=== PATIENT | female | born 1945 | race Caucasian/White ===

== ENCOUNTER 2016-09-07 07:40 | Emergency (ER) | payer MEDICARE, OTHER ==
[~2016-09-07] VITALS: Ht 162.6 cm; Wt 70.5 kg
[2016-09-07 07:43] VITALS: TEMP 98
[2016-09-07] MEDS ORDERED: VITAMIN C500 MG PO (07:56)
[2016-09-07] MEDS ORDERED: ONE DAILY1 TA1 PO (07:56)
[2016-09-07] MEDS ORDERED: ASPIRIN 81M81 MG/TA2 PO (07:56)
[2016-09-07] MEDS ORDERED: LEXAPRO 10MG10 MG PO (07:56)
[2016-09-07] MEDS ORDERED: PRIL40 PO (07:57)
[2016-09-07] MEDS ORDERED: COZAAR 25MG25 MG/TAB PO (07:57)
[2016-09-07] MEDS ORDERED: NORCO 325 MG-51 TAB PO (08:15)
[2016-09-07] MEDS ORDERED: NAPROXEN 3375 MG/TAB PO (08:15)
[2016-09-07 09:17] VITALS: BP 148/90; PULSE 99
== END 2016-09-07 09:18 | disposition home or self-care (01) ==
LOC: COL.ER 07:40
DX: M25.511 Pain in right shoulder (principal); M75.21 Bicipital tendinitis, right shoulder; Z79.82 Long term (current) use of aspirin; Z90.710 Acquired absence of both cervix and uterus
CPT/HCPCS: J1885

== ENCOUNTER → 2016-11-18 | Outpatient (CLI) | payer MEDICARE, OTHER ==
[~2016-11-18] MED LIST: ASPIRIN 81M81 MG/TA2 PO; COZAAR 25MG25 MG/TAB PO; LEXAPRO 10MG10 MG PO; NAPROXEN 3375 MG/TAB PO; NORCO 325 MG-51 TAB PO; ONE DAILY1 TA1 PO; PRIL40 PO; VITAMIN C500 MG PO
== END ==
LOC: MC.RAD 09:10
DX: Z12.31 Encounter for screening mammogram for malignant neoplasm of breast (principal)

== ENCOUNTER → 2017-12-07 | Outpatient (CLI) | payer MEDICARE, OTHER | LOC: MC.RAD 10:20 | DX: Z12.31 Encounter for screening mammogram for malignant neoplasm of breast (principal) ==

== ENCOUNTER → 2019-03-15 | Outpatient (CLI) | payer MEDICARE, OTHER | LOC: MC.RAD 09:40 | DX: Z12.31 Encounter for screening mammogram for malignant neoplasm of breast (principal) ==

== ENCOUNTER 2020-03-23 19:17 | Observation (INO) | payer MEDICARE, OTHER ==
[~2020-03-23] VITALS: Ht 160 cm; Wt 70.1 kg
[2020-03-23 19:54] LABS: ALANINE AMINOTRANSFERASE 21 U/L (4-34); ALBUMIN 4.5 gm/dL (3.5-5.0); ALKALINE PHOSPHATASE 85 U/L (50-136); ANION GAP 10 mmol/L (7-16); AST,SGOT 30 U/L (15-37); BILIRUBIN,TOTAL 0.8 mg/dL (0.0-1.0); BLOOD UREA NITROGEN 21 mg/dL (7-17); CALCIUM 9.4 mg/dL (8.4-10.2); CARBON DIOXIDE 24 mmol/L (22-30); CHLORIDE 102 mmol/L (98-107); CREATININE, serum 0.96 (0.52-1.25); GLUCOSE 123 mg/dL (74-106); SODIUM 136 mmol/L (137-145); TOTAL PROTEIN 7.7 gm/dL (6.4-8.2)
[2020-03-23 20:06] LABS: MUCOUS Present /lpf; PH 6 (5-8); SQUAMOUS EPITHELIAL 0-2 /hpf; URINE APPEARANCE Clear; URINE BACTERIA Rare /hpf; URINE BILIRUBIN Negative (NEGATIVE); URINE BLOOD Negative (NEGATIVE); URINE COLOR Yellow; URINE GLUCOSE Negative (NEGATIVE); URINE KETONE Negative (NEGATIVE); URINE LEUKOCYTE ESTERASE Negative (NEGATIVE); URINE NITRATE Negative (NEGATIVE); URINE PROTEIN(semi-quant) Negative (NEGATIVE); URINE RBC 0-2 /hpf; URINE WBC 0-2 /hpf
[2020-03-23 20:10] LABS: TROPONIN-I < 0.012 ng/mL (0.000-0.035)
[2020-03-23 20:15] LABS: INR 1.2 (0.8-3.0)
[2020-03-23 20:31] LABS: BASO % 0.5 % (0.0-2.0); EOS # 0.1 (0.0-0.7); EOS % 2.2 % (0-4.0); GRAN # 4.1 (1.4-6.5); GRAN % 62.3 % (42.2-75.2); HEMOGLOBIN 15.7 g/dl (12.5-16.0); LYMPH # 1.4 (1.2-3.4); LYMPH % 21.7 % (20.0-51.0); MEAN CELL VOLUME 93 fl (80.0-100.0); MEAN CORPUSCULAR HEMOGLOBIN 32 pg (27.0-31.0); MEAN CORPUSCULAR HGB CONC 34 g/dl (33.0-37.0); MONO # 0.8 (0.1-0.6); MONO % 12.5 % (1.7-9.3); PLATELET COUNT 157 K/mm3 (130-400); RED BLOOD COUNT 4.95 M/mm3 (4.10-5.30); REDCELL DISTRIBUTION WIDTH-CV 14.2 % (11.5-14.5)
[2020-03-23 21:11] LABS: COLLECTION METHOD CLEAN CATCH
[2020-03-23 23:08] VITALS: BP 162/88; PULSE 83; TEMP 98.2
--- NOTE | 2020-03-23 23:08 | NUR ---
@2300, PATIENT ADMITTED TO ROOM 346 PER W/C ACCOMPANIED BY ED NURSE. PATIENT U AMBULATING IN ROOM, GAIT STEADY, SPEECH CLEAR, FOLLOWS COMMANDS AT THIS TIME. TELE IN PLACE. SALINE LOCK IN PLACE.
[2020-03-23] MEDS ORDERED: ADVIL200 MG PO (23:50)
[2020-03-23] MEDS ORDERED: COZAAR 50MG50 MG/TAB PO (23:50)
[2020-03-24] VITALS (8 sets, daily range): BP systolic 132–172; BP diastolic 57–94; PULSE 82–97; TEMP 98–98.8
[2020-03-24 00:02] LABS: MAGNESIUM 2.3 mg/dL (1.6-2.3); PHOSPHOROUS 3.8 mg/dL (2.5-4.5)
[2020-03-24 06:29] LABS: BASO % 0.3 % (0.0-2.0); EOS # 0.1 (0.0-0.7); EOS % 1.6 % (0-4.0); GRAN % 65.1 % (42.2-75.2); HEMATOCRIT 44.7 % (37.0-47.0); HEMOGLOBIN 15.1 g/dl (12.5-16.0); LYMPH # 1.3 (1.2-3.4); LYMPH % 20.8 % (20.0-51.0); MEAN CELL VOLUME 94 fl (80.0-100.0); MEAN CORPUSCULAR HEMOGLOBIN 32 pg (27.0-31.0); MEAN CORPUSCULAR HGB CONC 34 g/dl (33.0-37.0); MEAN PLATELET VOLUME 9.2 fl (7.4-10.4); MONO # 0.7 (0.1-0.6); MONO % 11.7 % (1.7-9.3); RED BLOOD COUNT 4.78 M/mm3 (4.10-5.30); REDCELL DISTRIBUTION WIDTH-CV 14.2 % (11.5-14.5)
[2020-03-24 06:46] LABS: CHOLESTEROL 185 mg/dL (120-200); CHOLESTEROL RISK RATIO 2.3; HDL CHOLESTEROL 80 mg/dL; LDL CHOLESTEROL 87 mg/dL; TRIGLYCERIDE 92 mg/dL
[2020-03-24 06:52] LABS: C-REACTIVE PROTEIN < 0.5 mg/dL (0.0-0.9)
[2020-03-24 06:55] LABS: PLATELET COUNT 136 K/mm3 (130-400)
--- NOTE | 2020-03-24 07:24 | NUR ---
CHANGE OF SHIFT REPORT GIVEN TO DAY SHIFT NURSEDANY.
--- NOTE | 2020-03-24 08:00 | NUR ---
Patient in bed resting. Alert and oriented x3. Assessment complete. Denies pain at this time. Denies further needs at this time.
--- NOTE | 2020-03-24 12:34 | NUR ---
First visit from the planning associate. No needs right now.
[2020-03-24] MEDS ORDERED: PLAVIX 75MG TAB75 MG PO (13:05)
[2020-03-24] MEDS ORDERED: COZAAR 50MG50 MG/TAB PO (13:06)
--- NOTE | 2020-03-24 13:33 | NUR ---
Discharge education provided to patient. Educated on when to call provider and scheduling follow up appointment. Educated on medicaiton changes and new medication. All questions answered. INT to LAC discontinued, catheter tip intact. Denies further needs at this time. Patient ambulated out with surgical staff.
--- NOTE | 2020-03-24 14:06 | NUR ---
DEVANTE (Antonia) met with patient to conduct intake evaluation. Patient lives in [place] with her Abdullahi (P# [phone]). Patint requires no assistance with ADLs and requires no DME. Patient's PCP is Dr. Craig, and he uses [facility] for medications. Patient does not require assistance in obtaining medications. Patient is currently being discharged home with . There are no needs at this time.
== END 2020-03-24 13:34 | disposition home or self-care (01) ==
LOC: COL.ER 19:17 → SURG 21:55
PROVIDERS: Emergency Medicine; Nurse Practitioner Family
DX: R47.01 Aphasia (principal); I10 Essential (primary) hypertension; F41.9 Anxiety disorder, unspecified; B02.9 Zoster without complications; Z86.73 Personal history of transient ischemic attack (TIA), and cerebral infarction without residual deficits; Z90.710 Acquired absence of both cervix and uterus; Z79.82 Long term (current) use of aspirin; I07.1 Rheumatic tricuspid insufficiency
CPT/HCPCS: A9585; G0378; J1650; J7030; Q9967

== ENCOUNTER 2020-06-22 10:30 | Outpatient (RCR) | payer MEDICARE, OTHER ==
[~2020-06-22 10:30] MED LIST changes: +ADVIL200 MG PO; +COZAAR 50MG50 MG/TAB PO; +PLAVIX 75MG TAB75 MG PO
== END 2020-09-19 | disposition home or self-care (01) ==
LOC: MKS.ESL.OT
DX: R29.898 Other symptoms and signs involving the musculoskeletal system (principal)

== ENCOUNTER → 2020-06-26 | Outpatient (CLI) | payer MEDICARE, OTHER | LOC: MC.RAD 14:05 | DX: Z12.31 Encounter for screening mammogram for malignant neoplasm of breast (principal) ==

== ENCOUNTER 2021-04-01 13:53 | Outpatient (CLI) | payer MEDICARE, OTHER ==
[~2021-04-01] VITALS: Ht 160 cm; Wt 67.7 kg
[2021-04-01 14:45] VITALS: BP 153/96; PULSE 80; TEMP 98
[2021-04-01] MEDS ORDERED: LEXAPRO20 MG PO (15:14)
[2021-04-01] MEDS ORDERED: CRESTOR5 MG PO (15:15)
[2021-04-01] MEDS ORDERED: PLAVIX 75MG TAB75 MG PO (15:15)
[2021-04-01] MEDS ORDERED: COZAAR 50MG50 MG/TAB PO (15:15)
[2021-04-01] MEDS ORDERED: ONE-A-DAY WOM200 MCG PO (15:16)
[2021-04-01] MEDS ORDERED: VITAMIN D 400400 IU PO (15:16)
[2021-04-01] MEDS ORDERED: TYLENOL 500MG500 MG PO (15:16)
[2021-04-01] MEDS ORDERED: ADVIL200 MG PO (15:17)
== END 2021-04-01 15:17 | disposition home or self-care (01) ==
LOC: EUO 13:53
DX: M81.0 Age-related osteoporosis without current pathological fracture (principal)
CPT/HCPCS: J3489

== ENCOUNTER → 2021-07-04 | Outpatient (CLI) | payer MEDICARE ==
[~2021-07-04] MED LIST changes: +CRESTOR5 MG PO; +LEXAPRO20 MG PO; +ONE-A-DAY WOM200 MCG PO; +TYLENOL 500MG500 MG PO; +VITAMIN D 400400 IU PO
== END ==
LOC: MC.RAD 08:54
DX: Z12.31 Encounter for screening mammogram for malignant neoplasm of breast (principal)

== ENCOUNTER 2022-04-17 09:23 | Outpatient (CLI) | payer MEDICARE, OTHER ==
[~2022-04-17] VITALS: Ht 160 cm; Wt 66.9 kg
[2022-04-17] MEDS ORDERED: CENTRUM SILVER CHEW (09:43)
[2022-04-17 09:44] VITALS: BP 152/83; PULSE 91; TEMP 97.9
--- NOTE | 2022-04-17 10:33 | NUR ---
PT FINISHED INFUSION WITH NO ISSUES. STATES SHE FEELS NO ADVERSE SIDE EFFECTS. IV D/C'D. RESPS EVEN AND UN LABORED. PT AMBULATES STEADILY AND EVEN TO ELEVATOR
== END 2022-04-17 10:30 | disposition home or self-care (01) ==
LOC: EUO 09:23
DX: M81.0 Age-related osteoporosis without current pathological fracture (principal)
CPT/HCPCS: J3489

== ENCOUNTER → 2022-07-07 | Outpatient (CLI) | payer MEDICARE, OTHER ==
[~2022-07-07] MED LIST changes: +CENTRUM SILVER CHEW
== END ==
LOC: MC.RAD 08:52
DX: Z12.31 Encounter for screening mammogram for malignant neoplasm of breast (principal)

== ENCOUNTER → 2023-07-17 | Outpatient (CLI) | payer MEDICARE, OTHER | LOC: MC.RAD 10:15 | DX: Z12.31 Encounter for screening mammogram for malignant neoplasm of breast (principal) ==